=== PATIENT | male | born 1935 | race Caucasian/White ===

== ENCOUNTER → 2020-01-17 15:24 | Outpatient (BNVA) | payer OTHER, SELFPAY | PROVIDERS: Family Provider Nurse Practitioner Family; Referring Provider Dermatology; Visit Provider Dermatology | DX: Z85.828 Personal history of other malignant neoplasm of skin (principal); D48.5 Neoplasm of uncertain behavior of skin; L57.0 Actinic keratosis; L81.7 Pigmented purpuric dermatosis | CPT/HCPCS: 11102; 11103; 17000; 17003; 88304; 99203; 99204 ==

== ENCOUNTER → 2020-02-19 12:16 | Outpatient (BNVA) | payer OTHER, SELFPAY | PROVIDERS: Family Provider Nurse Practitioner Family; Visit Provider Dermatology | DX: D48.9 Neoplasm of uncertain behavior, unspecified (principal) | CPT/HCPCS: 88304 ==

== ENCOUNTER → 2020-02-26 12:44 | Outpatient (BNVA) | payer OTHER, SELFPAY | PROVIDERS: Family Provider Nurse Practitioner Family; Visit Provider Dermatology | DX: D48.9 Neoplasm of uncertain behavior, unspecified (principal) | CPT/HCPCS: 88304 ==

== ENCOUNTER → 2021-07-18 11:26 | Outpatient (BNVA) | payer OTHER, SELFPAY | PROVIDERS: Family Provider Nurse Practitioner Family; PCP Nurse Practitioner Family; Visit Provider Internal Medicine | DX: I25.10 Atherosclerotic heart disease of native coronary artery without angina pectoris (principal); I10 Essential (primary) hypertension; Z95.1 Presence of aortocoronary bypass graft; E78.5 Hyperlipidemia, unspecified; Z87.891 Personal history of nicotine dependence | CPT/HCPCS: 99213 ==

== ENCOUNTER → 2021-11-25 10:00 | Outpatient (BNVA) | payer OTHER, SELFPAY | PROVIDERS: Family Provider Nurse Practitioner Family; PCP Nurse Practitioner Family; Visit Provider Podiatrist Foot & Ankle Surgery | DX: E11.42 Type 2 diabetes mellitus with diabetic polyneuropathy (principal); I73.9 Peripheral vascular disease, unspecified; L60.3 Nail dystrophy; M20.41 Other hammer toe(s) (acquired), right foot; M20.42 Other hammer toe(s) (acquired), left foot | CPT/HCPCS: 99214 ==

== ENCOUNTER → 2022-01-30 10:57 | Outpatient (BNVA) | payer OTHER, SELFPAY | PROVIDERS: Family Provider Nurse Practitioner Family; PCP Nurse Practitioner Family; Visit Provider Internal Medicine | DX: I25.10 Atherosclerotic heart disease of native coronary artery without angina pectoris (principal); I10 Essential (primary) hypertension; Z95.1 Presence of aortocoronary bypass graft; E78.5 Hyperlipidemia, unspecified; Z98.61 Coronary angioplasty status; Z87.891 Personal history of nicotine dependence | CPT/HCPCS: 99213 ==

== ENCOUNTER → 2022-07-29 12:39 | Outpatient (BNVA) | payer OTHER, SELFPAY | PROVIDERS: Family Provider Nurse Practitioner Family; Visit Provider Internal Medicine | DX: I25.10 Atherosclerotic heart disease of native coronary artery without angina pectoris (principal); I10 Essential (primary) hypertension; E78.5 Hyperlipidemia, unspecified; Z95.1 Presence of aortocoronary bypass graft; Z87.891 Personal history of nicotine dependence | CPT/HCPCS: 99214 ==

== ENCOUNTER → 2022-11-10 11:02 | Outpatient (BNVA) | payer OTHER, SELFPAY | PROVIDERS: Family Provider Nurse Practitioner Family; Visit Provider Podiatrist Foot & Ankle Surgery | DX: E11.42 Type 2 diabetes mellitus with diabetic polyneuropathy (principal); I73.9 Peripheral vascular disease, unspecified; L60.3 Nail dystrophy; M20.42 Other hammer toe(s) (acquired), left foot; M20.41 Other hammer toe(s) (acquired), right foot; Z79.84 Long term (current) use of oral hypoglycemic drugs | CPT/HCPCS: 11721 ==

== ENCOUNTER → 2023-02-08 12:21 | Outpatient (BNVA) | payer OTHER, SELFPAY | PROVIDERS: Family Provider Nurse Practitioner Family; Visit Provider Internal Medicine | DX: I25.10 Atherosclerotic heart disease of native coronary artery without angina pectoris (principal); I10 Essential (primary) hypertension; Z95.1 Presence of aortocoronary bypass graft; E78.5 Hyperlipidemia, unspecified; Z87.891 Personal history of nicotine dependence | CPT/HCPCS: 99214 ==

== ENCOUNTER → 2023-02-10 14:00 | Outpatient (BNVA) | payer OTHER, SELFPAY | PROVIDERS: Family Provider Nurse Practitioner Family; Visit Provider Podiatrist Foot & Ankle Surgery | DX: E11.42 Type 2 diabetes mellitus with diabetic polyneuropathy (principal); I73.9 Peripheral vascular disease, unspecified; L60.3 Nail dystrophy; M20.42 Other hammer toe(s) (acquired), left foot; M20.41 Other hammer toe(s) (acquired), right foot; Z79.84 Long term (current) use of oral hypoglycemic drugs | CPT/HCPCS: 11721 ==

== ENCOUNTER → 2023-06-02 10:59 | Outpatient (BNVA) | payer OTHER, SELFPAY | PROVIDERS: Family Provider Nurse Practitioner Family; Visit Provider Podiatrist Foot & Ankle Surgery | DX: E11.42 Type 2 diabetes mellitus with diabetic polyneuropathy (principal); I73.9 Peripheral vascular disease, unspecified; L60.3 Nail dystrophy; M20.42 Other hammer toe(s) (acquired), left foot; M20.41 Other hammer toe(s) (acquired), right foot; Z79.84 Long term (current) use of oral hypoglycemic drugs | CPT/HCPCS: 11721 ==

== ENCOUNTER → 2023-06-09 12:53 | Outpatient (BNVA) | payer OTHER, SELFPAY | PROVIDERS: Family Provider Nurse Practitioner Family; Visit Provider Nurse Practitioner Family | DX: L23.9 Allergic contact dermatitis, unspecified cause (principal); L30.0 Nummular dermatitis; L57.0 Actinic keratosis; D69.2 Other nonthrombocytopenic purpura; L57.8 Other skin changes due to chronic exposure to nonionizing radiation; L81.4 Other melanin hyperpigmentation; L85.3 Xerosis cutis; Z85.828 Personal history of other malignant neoplasm of skin | CPT/HCPCS: 17000; 99214 ==

== ENCOUNTER 2023-06-24 10:28 | Emergency (ER) | payer OTHER, SELFPAY ==
[2023-06-24 10:32] VITALS: BMI 28.6
[2023-06-24 10:35] VITALS: BP 136/72; PULSE 82; RESP 17; TEMP 37.1; O2SAT 97
--- NOTE | 2023-06-24 10:36 | ECG_ITS ---
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 Measurements Intervals [place] Rate: 80 P: 102 WV: 159 QRS: 2 QRSD: 93 T: 78 QT: 356 QTc: 413 Interpretive Statements SINUS RHYTHM Compared to ECG 12/04/2018 18:42:24 Sinus tachycardia no longer present T-wave abnormality no longer present Electronically Signed On 06-24-2023 14:42:27 TRANSPORTATION CLERK by Frankie Johnson M.D. [email or web address] Lifewilson street [email or web address] the World/store/NU/[id number] f
--- NOTE | 2023-06-24 10:36 | ECG_ITS ---
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 Measurements Intervals [place] Rate: 80 P: 102 ND: 159 QRS: 2 QRSD: 93 T: 78 QT: 356 QTc: 413 Interpretive Statements SINUS RHYTHM Compared to ECG 12/04/2018 18:42:24 Sinus tachycardia no longer present T-wave abnormality no longer present Electronically Signed On 06-24-2023 14:42:30 WEBSPHERE COMMERCE CONSULTANT by Frankie Johnson M.D. [email or web address] Benefitscleveland clinic marymount hospitalJoroto/store/NU/[id number]/ecg/[id number] f
--- NOTE | 2023-06-24 10:38 | XR_ITS ---
WS: [id number] Portable AP upright chest, 06/24/2023 Clinical Data: dyspnea/cough Comparison: Portable chest, 12/04/2018 Findings: The heart is slightly enlarged. There are bilateral basilar opacities which have the appear ance of atelectasis. The diaphragms are flattened. No pneumothorax is seen. The pulmonary vascularity is not increased. There are midline sternotomy sutures. The aortic arch and descending thoracic aort a show calcifications and tortuosity is. Impression: 1. Bibasilar opacities which could represent minimal pneumonia and/or atelectasis. 2. Cardiomegaly, atherosclerosis and hyperinflation.
[2023-06-24 11:07] LABS: Basophils % 0.4 %; Eosinophils # 0.3 10^3/uL (0.0-0.8); Eosinophils % 5.7 %; Hematocrit 32.9 % (37-53); Lymphocytes # 1.5 10^3/uL (0.8-4.8); Lymphocytes % 26.2 %; Mean Corpuscular HGB Conc 30.4 g/dL (30-55); Mean Corpuscular Hemoglobin 22.7 pg (27-33); Mean Corpuscular Volume 74.6 fl (82-101); Mean Platelet Volume 8.6 fL (7.4-10.4); Monocytes # 0.7 10^3/uL (0.2-0.9); Monocytes % 11.7 %; Neutrophils % 55.6 %; Nucleated Red Blood Cells % 0 %; Platelet Count 197 10^3/cmm (157-399); Red Blood Count 4.41 10^6/uL (3.85-5.65); Red Cell Distribution Width 16.1 % (12.1-15.1); White Blood Count 5.57 10^3/uL (3.29-11.43)
[2023-06-24 11:11] VITALS: BP 124/63; PULSE 79; O2SAT 96
--- NOTE | 2023-06-24 11:15 | ED_ITS ---
HPI - SOB/Dyspnea 2 General: Chief Complaint: Shortness of Breath/Dyspnea Stated Complaint: Sob, irregular bp sent from [place] Time Seen by Provider: 06/24/23 10:38 Source: patient Mode of arrival: ambulatory History of Present Illness: HPI Narrative: 87-year-old male presents emergency room complaining of intermittent shortness of breath with activity. He does not normally use oxygen at home. He has intermittent episodes of lightheadedness dizziness when he first stands. He has a baseline productive cough that is unchanged. No fever sweats or chills no chest pain at this time MD elicited complaint: shortness of breath Onset (ago): day(s) Timing: intermittent Severity: mild Exacerbating factors: exertion Relieving factors: rest Associated symptoms: Deny abdominal pain, chest congestion, chest pain, cough, diaphoresis, dizziness, extremity pain, fever(s), hemoptysis, lightheadedness, myalgias, nausea, orthopnea, palpitations, paresthesias, polydipsia, polyuria, rash, sense of impending doom, syncope or vomiting Treatment prior to arrival: none Review of Systems 2 Const: Denies: fever(s), chills or diaphoresis Card: Denies: chest pain, palpitations, lightheadedness, syncope or orthopnea Resp: Reports: dyspnea and productive cough (Unchanged baseline); Denies: hemoptysis or chest congestion GI: Denies: abdominal pain, nausea or vomiting : Denies: dysuria, urinary frequency or urinary urgency Musc: Denies: neck pain, back pain or extremity pain Skin/Breast: Denies: rash Neuro: Denies: dizziness Endo: Denies: polyuria or polydipsia PFSH ED 2 PFSH: Medical History History of nonmelanoma skin cancer BPH (benign prostatic hyperplasia) Nocturia Surgical History S/P angioplasty S/P cholecystectomy S/P skin cancer resection Hx of CABG Family History Mother , 70 No problems noted. Father , 90 No problems noted. Social History Smoking and tobacco/nicotine status: former use of tobacco/nicotine Alcohol intake: never Substance/Drug Use: never Marital status: Current occupational status: retired Physical Exam 2 Const: COMMON NORMALS: no acute distress GENERAL APPEARANCE: cooperative and comfortable ORIENTATION/CONSCIOUSNESS: Yes awake, Yes oriented to person, Yes oriented to place and Yes oriented to time HENMT: COMMON NORMALS: normocephalic, atraumatic and hearing grossly normal bilaterally HEAD & SCALP: normocephalic and atraumatic Resp: COMMON NORMALS: normal respiratory effort, No retractions, No use of accessory muscles and clear to auscultation bilaterally AUSCULTATION: clear to auscultation bilaterally Cardio: COMMON NORMALS: regular rate, regular rhythm and No murmurs present (Cardio) RATE: regular rate RHYTHM: regular rhythm GI: COMMON NORMALS: Soft to palpation and No hepatosplenomegaly present A USCULTATION: Yes normoactive bowel sounds PALPATION: Yes Soft to palpation, No Tenderness to palpation present (GI), No Guarding due to palpation present (GI) and Yes No hepatosplenomegaly present Extremity: COMMON NORMALS: normal to inspection, capillary refill normal, no clubbing, cyanosis or edema, no calf tenderness and no pedal edema Neuro: SENSORIUM/ORIENTATION: Yes oriented to person, Yes oriented to place and Yes oriented to time Skin: COMMON NORMALS: no rashes or lesions noted GENERAL SKIN EXAM: no rashes or lesions noted Course 2 Vital Signs: Vital signs: Vital Signs Temperature 98.8 F 06/24/23 10:35 Pulse Rate 75 06/24/23 15:04 Respiratory Rate 22 H 06/24/23 12:17 Blood Pressure 127/69 06/24/23 15:04 Pulse Oximetry 93 06/24/23 12:17 Oxygen Delivery Me thod Room Air 06/24/23 10:35 MDM - SOB/Dyspnea Medical Decision Making Labs and imaging reviewed. Chest x-ray appears to have more atelectasis. Patient states He has a little bit of productive cough but its baseline clear sputum that he has frequently and its unchanged from what he intermittently has it has not increased or changed in character or color or volume. Will have him hold his amlodipine and set him up for an outpatient Lexiscan sestamibi stress test and a 48-hour Holter monitor follow-up with his doctor within 1 week for any worsening or changes symptoms recheck. He does have some mild hyponatremia however appears to be his baseline in comparison to old labs. Additionally he is mildly anemic his only other hemoglobin to compare to is over 5 years old this should be followed up with his primary care doctor as well. Lab Data 06/24/23 11:00 06/24/23 11:00 Labs/Radiology: Laboratory Results WBC 5.57 10^3/uL (3.29-11.43) 06/24/23 11:00 RBC 4.41 10^6/uL (3.85-5.65) 06/24/23 11:00 Hgb 10.00 g/dL (11.27-16.99) L 06/24/23 11:00 Hct 32.9 % (37-53) L 06/24/23 11:00 MCV 74.6 fl (82-101) L 06/24/23 11:00 MCH 22.7 pg (27-33) L 06/24/23 11:00 MCHC 30.4 g/dL (30-55) 06/24/23 11:00 RDW 16.1 % (12.1-15.1) H 06/24/23 11:00 Plt Count 197 10^3/cmm (157-399) 06/24/23 11:00 MPV 8.6 fL (7.4-10.4) 06/24/23 11:00 Neut % (Auto) 55.6 % 06/24/23 11:00 Lymph % (Auto) 26.2 % 06/24/23 11:00 Gordon % (Auto) 11.7 % 06/24/23 11:00 Eos % (Auto) 5.7 % 06/24/23 11:00 Baso % (Auto) 0.4 % 06/24/23 11:00 Neut # (Auto) 3.10 10^3/uL (1.8-7.7) 06/24/23 11:00 Lymph # (Auto) 1.5 10^3/uL (0.8-4.8) 06/24/23 11:00 Gordon # (Auto) 0.7 10^3/uL (0.2-0.9) 06/24/23 11:00 Eos # (Auto) 0.3 10^3/uL (0.0-0.8) 06/24/23 11:00 Baso # (Auto) 0.0 10^3/uL (0.0-0.1) 06/24/23 11:00 Nucleated RBC % (auto) 0 % 06/24/23 11:00 Nucleated RBCs # 0.0 /100WBC 06/24/23 11:00 Sodium 129 mmol/L (136-145) L 06/24/23 11:00 Potassium 4.5 mmol/L (3.5-5.1) 06/24/23 11:00 Chloride 95 mmol/L (98-107) L 06/24/23 11:00 Carbon Dioxide 22 mmol/L (22-29) 06/24/23 11:00 Anion Gap 16.5 (5-19) 06/24/23 11:00 BUN 16 mg/dL (8-23) 06/24/23 11:00 Creatinine 1.2 mg/dL (0.7-1.2) 06/24/23 11:00 GFR Calculation Not Reportable 06/24/23 11:00 Glucose 197 mg/dL (65-115) H 06/24/23 11:00 Calculated Osmolality 275 mOsm/kg (285-295) L 06/24/23 11:00 Calcium 8.5 mg/dL (8.5-10.5) 06/24/23 11:00 Magnesium 1.7 mg/dL (1.7-2.3) 06/24/23 11:00 Total Bilirubin 0.5 mg/dL (0.15-1.2) 06/24/23 11:00 AST 13 U/L (0-40) 06/24/23 11:00 ALT 9 U/L (0-41) 06/24/23 11:00 Alkaline Phosphatase 72 U/L (40-130) 06/24/23 11:00 Troponin T Baseline 13 ng/L (0-15) 06/24/23 11:00 Troponin T 120 Minute 11.91 ng/L (0-15) 06/24/23 13:18 Delta Troponin T -1.09 ABS# (0-10) L 06/24/23 13:18 Total Protein 5.8 g/dL (6.6-8.7) L 06/24/23 11:00 Albumin 3.5 g/dL (3.5-5.2) 06/24/23 11:00 Globulin 2.3 g/dL (1.3-4.6) 06/24/23 11:00 Urine Color Yellow (Yellow) 06/24/23 11:35 Urine Appearance Clear (CLEAR) 06/24/23 11:35 Urine pH 6.5 (5-7) 06/24/23 11:35 Ur Specific [place] 1.005 (1.005-1.030) 06/24/23 11:35 Urine Protein Neg (Negative) 06/24/23 11:35 Urine Glucose (UA) Norm (Normal) 06/24/23 11:35 Urine Ketones Negative (Negative) 06/24/23 11:35 Urine Blood Neg (Negative) 06/24/23 11:35 Urine Nitrate Negative (Negative) 06/24/23 11:35 Urine Bilirubin Neg (Negative) 06/24/23 11:35 Urine Urobilinogen Neg mg/dL (Negative) 06/24/23 11:35 Ur Leukocyte Esterase Negative (Negative) 06/24/23 11:35 All radiology interpretation(s) finalized by discharge Discharge Plan Discharge Patient Disposition: Home Clinical Impression: Palpitations, Dyspnea Condition: Stable Prescriptions: Discontinued amlodipine 2.5 mg Tablet 2.5 mg PO DAILY No Action Antacid Calcium 215 mg calcium (500 mg) tablet,chewable 430 mg PO BEDTIME PRN (Reason: ANTACID) hydrophilic Ointment 1 applic topical BID PRN (Reason: Dry Skin) melatonin 3 mg capsule 6 mg PO BEDTIME lisinopril 40 mg tablet 20 mg PO BID dicyclomine 10 mg capsule 10 mg PO TID PRN (Reason: IBS) acetaminophen 325 mg tablet 650 mg PO QID PRN (Reason: Pain) atorvastatin 40 mg tablet 20 mg PO QPM cholecalciferol (vitamin D3) 2,000 unit tablet 4,000 unit PO DAILY clopidogrel 75 mg tablet 75 mg PO DAILY finasteride 5 mg tablet 5 mg PO DAILY fluticasone propionate [Allergy Relief (fluticasone)] 50 mcg/actuation spray,suspension 1 spray INTRANASAL DAILY glipizide 5 mg tablet 5 mg PO BID metformin 1,000 mg tablet extended release 24hr 1,000 mg PO QAM metoprolol succinate 100 mg capsule,sprinkle,ER 24hr 100 mg PO DAILY pantoprazole [address] for susp in packet 40 mg PO Q12H simethicone [Gas Relief (simethicone)] 80 mg tablet,chewable 160 mg PO QID PRN (Reason: INDIGESTON) terazosin 10 mg capsule 10 mg PO BEDTIME triamcinolone acetonide 0.1 % ointment 1 applic topical BID Qty: 454 0RF mupirocin 2 % ointment 1 applic topical BID Qty: 22 1RF Rx Instructions: Apply to affected areas on legs until healed Senokot 8.6 mg Tablet 8.6 mg PO DAILY cetirizine 10 mg Tablet 10 mg PO DAILY tolterodine 2 mg Tablet 2 mg PO DAILY carboxymethylcellulose sodium 0.5 % Drops 2 drp ophthalmic (eye) QID benzonatate 100 mg Capsule 100 mg PO TID PRN (Reason: Cough) buspirone 10 mg Tablet 10 mg PO BID olopatadine 0.1 % Drops 1 drp OPHTHALMIC (EYE) BID Rx Instructions: separate doses by at least 6-8 hours ketoconazole 1 % Shampoo 1 applic TOPICAL DAILY Fish Oil 1,000 mg (120 mg-180 mg) Capsule 1 cap PO DAILY Discharge Orders: Discharge ED (Routine); Ordered 06/24/23 Ordered By: Jeff Wright Referrals: Marivel Velazquez MD [Primary Care Provider] - Discharge Diet: Usual diet Discharge Activity: Increase activity as tolerated Patient Instructions: Opioid Safety, Pain Management Activity Restrictions/Additional Instructions: Thank you for choosing [facility] for your healthcare needs today. Please realize this is an emergency room and that we are providing you with a medical screening exam and this may not be complete and all inclusive of all the testing and or work up that you may need to determine your ailment or severity of your illness. It is very important that you follow up as instructed or that you return to the Emergency Department should you have concerns or if your condition changes or worsens in any way. Case management make arrangements for you to have an outpatient stress test and a 48-hour Holter monitor. Recommend that you stop taking the amlodipine for now and follow-up with your primary care doctor Coding Level of Care Code ED Claims Administrator for Jordan Aranda
[2023-06-24 11:31] LABS: Alanine Aminotransferase 9 U/L (0-41); Albumin Level 3.5 g/dL (3.5-5.2); Alkaline Phosphatase 72 U/L (40-130); Anion Gap 16.5 (5-19); Aspartate Amino Transferase 13 U/L (0-40); Blood Urea Nitrogen 16 mg/dL (8-23); Calcium 8.5 mg/dL (8.5-10.5); Carbon Dioxide 22 mmol/L (22-29); Chloride 95 mmol/L (98-107); Creatinine Clr Calc Pharmacy 53.5594; Globulin 2.3 g/dL (1.3-4.6); Glucose 197 mg/dL (65-115); Magnesium 1.7 mg/dL (1.7-2.3); Osmolality Calculated 275 mOsm/kg (285-295); Potassium 4.5 mmol/L (3.5-5.1); Sodium 129 mmol/L (136-145); Total Bilirubin 0.5 mg/dL (0.15-1.2); Total Protein 5.8 g/dL (6.6-8.7)
[2023-06-24 11:32] LABS: Troponin(5th) Baseline 13 ng/L (0-15)
[2023-06-24 11:44] LABS: Add Urine Microscopic? NO; Charge for UA Resulting for Rev
[2023-06-24 11:48] LABS: Bilirubin Urine Neg (Negative); Blood Urine Neg (Negative); Glucose Urine UA Norm (Normal); Ketones Urine Negative (Negative); Leukocyte Esterase Urine Negative (Negative); Nitrate Urine Negative (Negative); Protein Urine Neg (Negative); Specific Gravity, Urine 1.005 (1.005-1.030); Urine Appearance Clear (CLEAR); Urine Color Yellow (Yellow); Urobilinogen Urine Neg (Negative); pH Urine 6.5 (5-7)
[2023-06-24 12:17] VITALS: BP 107/63; PULSE 75; RESP 22; O2SAT 93
--- NOTE | 2023-06-24 12:40 | ECG_ITS ---
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 Measurements Intervals [place] Rate: 73 P: 85 SC: 211 QRS: -4 QRSD: 87 T: 71 QT: 374 QTc: 414 Interpretive Statements SINUS RHYTHM WITH FIRST DEGREE AV BLOCK Compared to ECG 06/24/2023 10:36:33 First degree AV block now present Electronically Signed On 06-24-2023 14:47:49 CHUTE BOSS by Frankie Johnson M.D. [email or web address] promise of [email or web address] Sciencecleveland clinic [facility].[employer]/store/OM/[id number]
[2023-06-24 13:55] LABS: Troponin 5 2HR 11.91 ng/L (0-15)
[2023-06-24 13:57] LABS: Troponin 5 2HR Delta -1.09 ABS# (0-10)
[2023-06-24 15:04] VITALS: BP 123/64; BP 127/69; PULSE 75; PULSE 76; PULSE 79
--- NOTE | 2023-06-24 18:05 | DCPLANNER ---
A message was sent to heart care on 06/24/23 at 3254. [facility] to contact patient
== END 2023-06-24 15:21 | disposition home or self-care (01) ==
PROVIDERS: Emergency Provider Family Medicine; PCP Family Medicine
DX: R06.00 Dyspnea, unspecified (principal); R00.2 Palpitations; Z79.02 Long term (current) use of antithrombotics/antiplatelets; Z79.84 Long term (current) use of oral hypoglycemic drugs; Z95.1 Presence of aortocoronary bypass graft; Z87.891 Personal history of nicotine dependence
CPT/HCPCS: 36415; 71045; 80053; 81003; 83735; 84484; 85025; 93005; 99285

== ENCOUNTER 2023-07-07 15:13 | Emergency (ER) | payer OTHER, SELFPAY ==
[2023-07-07] VITALS (7 sets, daily range): BP systolic 173–186; BP diastolic 85–86; PULSE 68–74; RESP 16–25; TEMP 36.4; O2SAT 94–99
--- NOTE | 2023-07-07 15:17 | ECG_ITS ---
[facility] Test Date: 2023-07-07 Pat Name: Charbel Azar Department: Room: Gender: Male Room Designer: : 1935 Requested By: Jeff Sheth Order Number: [id number] Harmony MD: Frankie Johnson M.D. Measurements Intervals [place] Rate: 74 P: -83 PA: 137 QRS: -3 QRSD: 91 T: 45 QT: 371 QTc: 412 Interpretive Statements SINUS RHYTHM Compared to ECG 06/24/2023 12:40:40 First degree AV block no longer present Electronically Signed On 07-07-2023 16:48:35 CDT by Frankie Johnson M.D. [email or web address].[employer]/store/NU/[id number] f
--- NOTE | 2023-07-07 15:44 | XR_ITS ---
WS: [id number] Portable AP upright chest, 07/07/2023 Clinical Data: dyspnea/cough Comparison: Portable chest, 06/24/2023 Findings: The bibasilar opacities remain the same. Heart is slightly enlarged. The aortic arch shows calcification and tortuosity. Midline sternotomy sutures are present. The diaphragms are flattened. N o pneumothorax is seen and the pulmonary vascularity is not remarkable. Monitor leads are on the ches t wall. There are probable synovial calcifications adjacent to the left coracoid process Impression: 1. No change in bibasilar opacities. 2. Atherosclerosis and cardiomegaly.
--- NOTE | 2023-07-07 15:45 | PC.NURSE ---
pt walks from triage to rm 15, hooked up to monitor and pt o2 on RA was 85%. placed on 2Lnc and notified larry
--- NOTE | 2023-07-07 15:53 | ED_ITS ---
HPI - SOB/Dyspnea 2 General: Chief Complaint: Shortness of Breath/Dyspnea Stated Complaint: sob Time Seen by Provider: 07/07/23 15:44 Source: patient Mode of arrival: ambulatory History of Present Illness: HPI Narrative: 87-year-old male presents emergency room complaining of shortness of breath progressively worsening over the last few months gotten the point that he cannot walk across his room without getting severely short of breath nearly stopped. Home health nurse came out today and he desatted to the low a mid to low 80s while they were checking. He had similar oxygen desaturations after arriving here. On 2 L he sats 100%. He has a history of COPD is a former smoker also has a history of coronary artery disease he quit smoking after his bypass over 10 years ago. MD elicited complaint: shortness of breath Pertinent past history: COPD Onset (ago): month(s) (2) Timing: intermittent Severity: moderate Exacerbating factors: exertion Relieving factors: oxygen Known history of: COPD Associated symptoms: Deny abdominal pain, chest congestion, chest pain, cough, diaphoresis, dizziness, extremity pain, fever(s), hemoptysis, lightheadedness, myalgias, nausea, orthopnea, palpitations, paresthesias, polydipsia, polyuria, rash, sense of impending doom, syncope or vomiting Treatment prior to arrival: none Review of Systems 2 Const: Denies: fever(s), chills or diaphoresis Card: Denies: chest pain, palpitations, lightheadedness, syncope or orthopnea Resp: Denies: dyspnea, hemoptysis or chest congestion GI: Denies: abdominal pain, nausea or vomiting : Denies: dysuria, urinary frequency or urinary urgency Musc: Denies: neck pain, back pain or extremity pain Skin/Breast: Denies: rash Neuro: Denies: dizziness Endo: Denies: polyuria or polydipsia PFSH ED 2 PFSH: Medical History (Updated 07/07/23 @ 18:15 by Jeff Wright DO) History of nonmelanoma skin cancer BPH (benign prostatic hyperplasia) Nocturia Surgical History S/P angioplasty S/P cholecystectomy S/P skin cancer resection Hx of CABG Family History Mother , 70 No problems noted. Father , 90 No problems noted. Social History Smoking and tobacco/nicotine status: former use of tobacco/nicotine Alcohol intake: never Substance/Drug Use: never Marital status: Current occupational status: retired Physical Exam 2 Const: GENERAL APPEARANCE: cooperative and comfortable O RIENTATION/CONSCIOUSNESS: Yes awake, Yes oriented to person, Yes oriented to place and Yes oriented to time HENMT: COMMON NORMALS: normocephalic, atraumatic and hearing grossly normal bilaterally HEAD & SCALP: normocephalic and atraumatic Resp: COMMON NORMALS: normal respiratory effort, No retractions and No use of accessory muscles AUSCULTATION: crackles and rhonchi Cardio: COMMON NORMALS: regular rate, regular rhythm and No murmurs present (Cardio) RATE: regular rate RHYTHM: regular rhythm GI: COMMON NORMALS: Soft to palpation and No hepatosplenomegaly present A USCULTATION: Yes normoactive bowel sounds PALPATION: Yes Soft to palpation, No Tenderness to palpation present (GI), No Guarding due to palpation present (GI) and Yes No hepatosplenomegaly present Extremity: COMMON NORMALS: normal to inspection, capillary refill normal, no clubbing, cyanosis or edema, no calf tenderness and no pedal edema Neuro: SENSORIUM/ORIENTATION: Yes oriented to person, Yes oriented to place and Yes oriented to time Skin: COMMON NORMALS: no rashes or lesions noted GENERAL SKIN EXAM: no rashes or lesions noted Course 2 Vital Signs: Vital signs: Vital Signs Temperature 97.5 F L 07/07/23 15:22 Pulse Rate 70 07/07/23 18:29 Respiratory Rate 24 H 07/07/23 18:29 Blood Pressure 173/85 07/07/23 17:02 Pulse Oximetry 94 07/07/23 18:29 Oxygen Delivery Me thod Nasal Cannula 07/07/23 17:00 Oxygen Flow Rate 2 07/07/23 17:00 MDM - SOB/Dyspnea Medical Decision Making CTA of the chest is negative for acute PE. [facility] when he has it at home. He is not very interested in using it however because he anticipates it will be cumbersome and difficult for him to do the things he usually wants to do. We had seen him previously for exacerbation COPD his primary care nurse provider reported he had a positive D- dimer added to the clinic. We did not repeat his D-dimer here we did do the CTA which does not show any acute PE does show severe COPD. Reviewed with the patient. Recommend continued use of oxygen as prescribed. Patient wants to pursue other options so he does not have to be on the oxygen recommend he start on Symbicort 2 puffs twice daily use albuterol as needed and encouraged him to follow-up with the [facility] for possible pulmonology consult. Patient denies any chest pain now or recently at this visit. If he has any change or worsening symptoms can return. Differential Diagnosis Likely acute exacerbation of chronic obstructive airways disease, congestive heart failure, community acquired pneumonia and pulmonary embolism Medical Records I reviewed the patient's medical records. Lab Data I reviewed the patient's lab results. 07/07/23 15:53 07/07/23 15:53 Labs/Radiology: Radiology Impressions Chest CTA 07/07/23 16:24 IMPRESSION: 1. No acute findings 2. Cardiomegaly with severe emphysematous change involving both lungs Laboratory Results WBC 5.32 10^3/uL (3.29-11.43) 07/07/23 15:53 RBC 4.68 10^6/uL (3.85-5.65) 07/07/23 15:53 Hgb 10.80 g/dL (11.27-16.99) L 07/07/23 15:53 Hct 34.7 % (37-53) L 07/07/23 15:53 MCV 74.1 fl (82-101) L 07/07/23 15:53 MCH 23.1 pg (27-33) L 07/07/23 15:53 MCHC 31.1 g/dL (30-55) 07/07/23 15:53 RDW 16.3 % (12.1-15.1) H 07/07/23 15:53 Plt Count 229 10^3/cmm (157-399) 07/07/23 15:53 MPV 8.7 fL (7.4-10.4) 07/07/23 15:53 Neut % (Auto) 53.3 % 07/07/23 15:53 Lymph % (Auto) 26.5 % 07/07/23 15:53 [place] % (Auto) 13.0 % 07/07/23 15:53 Eos % (Auto) 5.6 % 07/07/23 15:53 Baso % (Auto) 0.8 % 07/07/23 15:53 Neut # (Auto) 2.84 10^3/uL (1.8-7.7) 07/07/23 15:53 Lymph # (Auto) 1.4 10^3/uL (0.8-4.8) 07/07/23 15:53 [place] # (Auto) 0.7 10^3/uL (0.2-0.9) 07/07/23 15:53 Eos # (Auto) 0.3 10^3/uL (0.0-0.8) 07/07/23 15:53 Baso # (Auto) 0.0 10^3/uL (0.0-0.1) 07/07/23 15:53 Nucleated RBC % (auto) 0 % 07/07/23 15:53 Nucleated RBCs # 0.0 /100WBC 07/07/23 15:53 Specimen Type Arterial 07/07/23 15:49 Sample Site Radial, left 07/07/23 15:49 ABG pH 7.45 (7.35-7.45) 07/07/23 15:49 ABG pCO2 33.9 mmHg (35-45) L 07/07/23 15:49 ABG pO2 110.0 mmHg (80.0-100.0) H 07/07/23 15:49 ABG PO2/FiO2 Ratio 0 07/07/23 15:49 ABG HCO3 23.3 mmol/L (22-26) 07/07/23 15:49 ABG O2 Saturation 97.4 07/07/23 15:49 ABG Base Excess -0.4 mmol/L (-2.0-2.0) 07/07/23 15:49 Johnson Test Pos 07/07/23 15:49 A-a O2 Gradient 5.9 mmHg (5-10) 07/07/23 15:49 Hematocrit 32.0 % (42-52) L 07/07/23 15:49 Hgb O2 Saturation 96.0 % (95-100) 07/07/23 15:49 Carboxyhemoglobin 0.5 %THgb (0.4-20.1) 07/07/23 15:49 Methemoglobin 0.9 % (0.4-1.5) 07/07/23 15:49 Total Hemoglobin 10.4 g/dL (14-18) L 07/07/23 15:49 Sodium 128.0 mmol/L (131-143) L 07/07/23 15:49 Potassium 4.1 mmol/L (3.5-5.0) 07/07/23 15:49 Glucose 162.0 mg/dL (70-115) H 07/07/23 15:49 Ionized Calcium 1.2 mmol/L (1.1-1.4) 07/07/23 15:49 O2 Delivery Device Nc 07/07/23 15:49 O2 Liters/Min 2.0 % 07/07/23 15:49 FiO2 28.0 % 07/07/23 15:49 Wastewater Operator ID Cak 07/07/23 15:49 Sodium 131 mmol/L (136-145) L 07/07/23 15:53 Potassium 4.5 mmol/L (3.5-5.1) 07/07/23 15:53 Chloride 96 mmol/L (98-107) L 07/07/23 15:53 Carbon Dioxide 25 mmol/L (22-29) 07/07/23 15:53 Anion Gap 14.5 (5-19) 07/07/23 15:53 BUN 14 mg/dL (8-23) 07/07/23 15:53 Creatinine 1.0 mg/dL (0.7-1.2) 07/07/23 15:53 GFR Calculation Not Reportable 07/07/23 15:53 Glucose 156 mg/dL (65-115) H 07/07/23 15:53 Calculated Osmolality 276 mOsm/kg (285-295) L 07/07/23 15:53 Calcium 8.9 mg/dL (8.5-10.5) 07/07/23 15:53 Total Bilirubin 0.5 mg/dL (0.15-1.2) 07/07/23 15:53 AST 16 U/L (0-40) 07/07/23 15:53 ALT 10 U/L (0-41) 07/07/23 15:53 Alkaline Phosphatase 84 U/L (40-130) 07/07/23 15:53 Troponin T Baseline 10 ng/L (0-15) 07/07/23 15:53 Troponin T 120 Minute 10.81 ng/L (0-15) 07/07/23 17:43 Delta Troponin T 0.81 ABS# (0-10) 07/07/23 17:43 NT-Pro-B Natriuret Pep 458 pg/mL (0-450) H 07/07/23 15:53 Total Protein 6.1 g/dL (6.6-8.7) L 07/07/23 15:53 Albumin 3.8 g/dL (3.5-5.2) 07/07/23 15:53 Globulin 2.3 g/dL (1.3-4.6) 07/07/23 15:53 All radiology interpretation(s) finalized by discharge Discharge Plan Discharge Patient Disposition: Home Clinical Impression: COPD (chronic obstructive pulmonary disease) Condition: Stable Prescriptions: New Symbicort 80-4.5 mcg/actuation HFA aerosol inhaler 2 inh inhalation BID Qty: 10.2 0RF albuterol sulfate 90 mcg/actuation HFA aerosol inhaler 2 inh INHALATION Q4H PRN (Reason: shortness of breath or wheezing) Qty: 18 0RF No Action Antacid Calcium 215 mg calcium (500 mg) tablet,chewable 430 mg PO BEDTIME PRN (Reason: ANTACID) hydrophilic Ointment 1 applic topical BID PRN (Reason: Dry Skin) melatonin 3 mg capsule 6 mg PO BEDTIME lisinopril 40 mg tablet 20 mg PO BID dicyclomine 10 mg capsule 10 mg PO TID PRN (Reason: IBS) acetaminophen 325 mg tablet 650 mg PO QID PRN (Reason: Pain) atorvastatin 40 mg tablet 20 mg PO QPM cholecalciferol (vitamin D3) 2,000 unit tablet 4,000 unit PO DAILY clopidogrel 75 mg tablet 75 mg PO DAILY finasteride 5 mg tablet 5 mg PO DAILY fluticasone propionate [Allergy Relief (fluticasone)] 50 mcg/actuation spray,suspension 1 spray INTRANASAL DAILY glipizide 5 mg tablet 5 mg PO BID metformin 1,000 mg tablet extended release 24hr 1,000 mg PO QAM metoprolol succinate 100 mg capsule,sprinkle,ER 24hr 100 mg PO DAILY pantoprazole [address] for susp in packet 40 mg PO Q12H simethicone [Gas Relief (simethicone)] 80 mg tablet,chewable 160 mg PO QID PRN (Reason: INDIGESTON) terazosin 10 mg capsule 10 mg PO BEDTIME triamcinolone acetonide 0.1 % ointment 1 applic topical BID Qty: 454 0RF mupirocin 2 % ointment 1 applic topical BID Qty: 22 1RF Rx Instructions: Apply to affected areas on legs until healed Senokot 8.6 mg Tablet 8.6 mg PO DAILY cetirizine 10 mg Tablet 10 mg PO DAILY tolterodine 2 mg Tablet 2 mg PO DAILY carboxymethylcellulose sodium 0.5 % Drops 2 drp ophthalmic (eye) QID benzonatate 100 mg Capsule 100 mg PO TID PRN (Reason: Cough) buspirone 10 mg Tablet 10 mg PO BID olopatadine 0.1 % Drops 1 drp OPHTHALMIC (EYE) BID Rx Instructions: separate doses by at least 6-8 hours ketoconazole 1 % Shampoo 1 applic TOPICAL DAILY Fish Oil 1,000 mg (120 mg-180 mg) Capsule 1 cap PO DAILY Discharge Orders: Discharge ED (Routine); Ordered 07/07/23 Ordered By: Jeff Wright Referrals: Rsoalva Ba FNP [Primary Care Provider] - Discharge Diet: Usual diet Discharge Activity: Increase activity as tolerated Patient Instructions: COPD (Chronic Obstructive Pulmonary Disease) (ED), Opioid Safety, Pain Management Activity Restrictions/Additional Instructions: Thank you for choosing [facility] for your healthcare needs today. Please realize this is an emergency room and that we are providing you with a medical screening exam and this may not be complete and all inclusive of all the testing and or work up that you may need to determine your ailment or severity of your illness. It is very important that you follow up as instructed or that you return to the Emergency Department should you have concerns or if your condition changes or worsens in any way. Follwo up with your physician at the [facility] for further treatment options for your COPD. Use the oxygen continiously. Coding Level of Care Code ED Refrigeration Engine Operator for Jordan Aranda
[2023-07-07 16:00] LABS: ABG PCO2 33.9 mmHg (35-45); ABG PH Result 7.45 (7.35-7.45); Alveolar-Arterial Oxygen Gradi 5.9 mmHg (5-10); Base Excess ABG -0.4 mmol/L (-2.0-2.0); Blood Gas Allen Test Pos; Blood Gas Operator Identificat CAK; Blood Gas Sample Site Radial, left; Blood Gas Sample Type Arterial; Carboxyhemoglobin 0.5 %THgb (0.4-20.1); HCO3 ABG 23.3 mmol/L (22-26); Ionized Calcium Level - ABG 1.2 mmol/L (1.1-1.4); Methemoglobin 0.9 % (0.4-1.5); Oxygen Device NC; Oxygen Saturation ABG 97.4; PO2 FiO2 Ratio Arterial Blood 0; Potassium Level - ABG 4.1 mmol/L (3.5-5.0); Total Hemoglobin 10.4 g/dL (14-18)
[2023-07-07 16:03] LABS: Basophils % 0.8 %; Eosinophils # 0.3 10^3/uL (0.0-0.8); Eosinophils % 5.6 %; Hematocrit 34.7 % (37-53); Lymphocytes # 1.4 10^3/uL (0.8-4.8); Lymphocytes % 26.5 %; Mean Corpuscular HGB Conc 31.1 g/dL (30-55); Mean Corpuscular Hemoglobin 23.1 pg (27-33); Mean Corpuscular Volume 74.1 fl (82-101); Mean Platelet Volume 8.7 fL (7.4-10.4); Monocytes # 0.7 10^3/uL (0.2-0.9); Neutrophils # 2.84 10^3/uL (1.8-7.7); Neutrophils % 53.3 %; Nucleated Red Blood Cells % 0 %; Platelet Count 229 10^3/cmm (157-399); Red Blood Count 4.68 10^6/uL (3.85-5.65); Red Cell Distribution Width 16.3 % (12.1-15.1); White Blood Count 5.32 10^3/uL (3.29-11.43)
[2023-07-07] MEDS: dexamethasone 10 mg/mL INJ IM (16:19)
--- NOTE | 2023-07-07 16:24 | CTR_ITS ---
PROCEDURE INFORMATION: Exam: CTA Chest With Contrast Exam date and time: 07/07/2023 5:26 PM Age: 87 years old Clinical indication: Shortness of breath; Prior surgery; Surgery date: 6+ months; Surgery type: Cabg; Additional info: Dyspnea TECHNIQUE: Imaging protocol: Computed tomographic angiography of the chest with contrast. Exam focused on the arteries. 3D rendering (Not supervised by radiologist): MIP and/or 3D reconstructed images were created by the technologist. Radiation optimization: All CT scans at this facility use at least one of these dose optimization techniques: automated exposure control; mA and/or kV adjustment per patient size (includes targeted exams where dose is matched to clinical indication); or iterative reconstruction. Contrast material: OMNI 350; Contrast volume: 80 ml; Contrast route: INTRAVENOUS (IV); COMPARISON: CR XR chest 1V portable [id number] 07/07/2023 3:47 PM RADIATION DOSE METRICS: Total DLP (mGy-cm): 471.45 FINDINGS: Pulmonary arteries: Normal. No pulmonary emboli. Aorta: Unremarkable. No aortic aneurysm. No aortic dissection. Lungs: Both lungs demonstrate prominent diffuse centrilobular emphysema and there is chronic diffuse interstitial coarsening. I see no acute lung infiltrate or mass. Pleural spaces: Unremarkable. No pneumothorax. No pleural effusion. Heart: There is evidence of previous heart surgery with sternal sutures present. Moderate cardiomegaly is noted. Lymph nodes: Unremarkable. No enlarged lymph nodes. Bones/joints: See Heart finding. Soft tissues: Unremarkable. CT/CT angio chest PE protcl [id number] IMPRESSION: 1. No acute findings 2. Cardiomegaly with severe emphysematous change involving both lungs
[2023-07-07 16:26] LABS: Alanine Aminotransferase 10 U/L (0-41); Albumin Level 3.8 g/dL (3.5-5.2); Alkaline Phosphatase 84 U/L (40-130); Anion Gap 14.5 (5-19); Aspartate Amino Transferase 16 U/L (0-40); Blood Urea Nitrogen 14 mg/dL (8-23); Calcium 8.9 mg/dL (8.5-10.5); Carbon Dioxide 25 mmol/L (22-29); Chloride 96 mmol/L (98-107); Creatinine Clr Calc Pharmacy 63.6035; Globulin 2.3 g/dL (1.3-4.6); Glucose 156 mg/dL (65-115); Osmolality Calculated 276 mOsm/kg (285-295); Potassium 4.5 mmol/L (3.5-5.1); Sodium 131 mmol/L (136-145); Total Bilirubin 0.5 mg/dL (0.15-1.2); Total Protein 6.1 g/dL (6.6-8.7)
[2023-07-07 16:34] LABS: Troponin(5th) Baseline 10 ng/L (0-15)
[2023-07-07 16:48] LABS: NT Pro B Type Natriuretic Pept 458 pg/mL (0-450)
[2023-07-07] MEDS: ipratropium-albuterol 3 mL Neb INHALATION (17:05)
[2023-07-07] MEDS: iohexol 350 mg/mL 500 mL Btl (per mL) IV (17:31)
--- NOTE | 2023-07-07 17:44 | ECG_ITS ---
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 Measurements Intervals [place] Rate: 71 P: 0 HI: 0 QRS: -8 QRSD: 89 T: 38 QT: 374 QTc: 407 Interpretive Statements ATRIAL FIBRILLATION Compared to ECG 07/07/2023 15:17:34 Sinus rhythm no longer present Electronically Signed On 07-08-2023 7:48:45 CDT by Frankie Johnson M.D. [email or web address] [id number]
[2023-07-07 18:19] LABS: Troponin 5 2HR 10.81 ng/L (0-15); Troponin 5 2HR Delta 0.81 ABS# (0-10)
== END 2023-07-07 18:30 | disposition home or self-care (01) ==
PROVIDERS: Emergency Provider Family Medicine; PCP Nurse Practitioner Family
DX: J44.9 Chronic obstructive pulmonary disease, unspecified (principal); Z79.02 Long term (current) use of antithrombotics/antiplatelets; Z79.84 Long term (current) use of oral hypoglycemic drugs; Z95.1 Presence of aortocoronary bypass graft; Z87.891 Personal history of nicotine dependence
CPT/HCPCS: 36415; 36600; 71045; 71275; 80051; 80053; 82330; 82805; 83880; 84484; 85025; 93005; 94640; 96372; 99285; J1100; Q9967

== ENCOUNTER 2023-07-13 12:22 | Outpatient (CLI) | payer OTHER, SELFPAY ==
--- NOTE | 2023-07-13 12:27 | USCV_ITS ---
Charbel Azar Age: 87 Gender: M : 1935 Exam Date: 07/13/2023 12:46 Ordering Phys: Rosalva Ba DEPUTY SHERIFF CUSTODY DEPUTY SHERIFF CUSTODY Technologist: [place] [facility] [place]: sob BP: 150 / 80 HR: 59 Rhythm: Sinus Technical Quality: Adequate MEASUREMENTS (Male / Female) Normal Values 2D ECHO LV Diastolic Diameter PLAX 5.6 cm 4.2 - 5.9 / 3.9 - 5.3 cm IVS Diastolic Thickness 1.3 cm 0.6 - 1.0 / 0.6 - 0.9 cm IVS Systolic Thickness 1.5 cm LVPW Diastolic Thickness 1.1 cm 0.6 - 1.0 / 0.6 - 0.9 cm LVPW Systolic Thickness 1.5 cm LVOT Diameter 2.0 cm LV Ejection Fraction 2D Teich 62.2 % LV Ejection Fraction MOD 2C 66.6 % LV Ejection Fraction 2C AL 66.8 % LA Diameter 4.3 cm RA Systolic Volume 4C AL 74.4 ml RA Systolic Volume 4C MOD 69.0 ml Aorta at Sinotubular Diameter 2.5 cm IVC Diameter 1.6 cm M-MODE LA Ao Ratio MM 1.5 AV Cusp Separation MM 1.7 cm DOPPLER AV Peak Velocity 195.0 cm/s LVOT Peak Velocity 107.0 cm/s AV Area Cont Eq vti 2.1 cm squared AV Area Cont Eq pk 1.7 cm squared MV Peak Velocity 90.0 cm/s MV Area PHT 5.7 cm squared Mitral E to A Ratio 1.1 TR Peak Velocity 352.5 cm/s TR Peak Gradient 49.7 mmHg TR Mean Velocity 273.0 cm/s TR Mean Gradient 34.3 mmHg TR Velocity Time Integral 142.1 cm TV Peak E Velocity 116.0 cm/s Right Atrial Pressure 3.0 mmHg Pulmonary Artery Systolic Pressu 52.7 mmHg PV Peak Velocity 143.0 cm/s FINDINGS Left Ventricle Normal LV size ejection fraction of 66%. Mild to moderate concentric left and the hypertrophy.Grade II/IV diastolic dysfunction, moderately elevated filling pressures. Right Ventricle The right ventricle is normal in size and function. Right Atrium Normal left atrial size Left Atrium Mildly increased left atrial size. Mitral Valve Mild mitral valve regurgitation. Aortic Valve Aortic valve sclerosis. Tricuspid Valve [id number] tricuspid valve regurgitation. Estimated pulmonary artery peak systolic pressure 61 mmHg. The mean pulmonary artery pressure of 37 mmHg Pulmonic Valve No gross abnormalities noted Pericardium No pericardial effusion. Aorta Normal aortic annulus size. IVC Normal inferior vena cava. CONCLUSIONS Normal LV size ejection fraction of 66%. Mild to moderate concentric left and the hypertrophy.Grade II/IV diastolic dysfunction, moderately elevated filling pressures. Mildly increased left atrial size. Mild mitral valve regurgitation. Aortic valve sclerosis. [id number]-ozttxjou tricuspid valve regurgitation. Estimated pulmonary artery peak systolic pressure 61 mmHg. The mean pulmonary artery pressure of 37 mmHg There is no pericardial effusion. There are no intracardiac masses. No similar previous studies are available for comparison Dr Abilio Otero MD [facility] (Electronically Signed) Final Date: 15 July 2023 22:15 S
== END 2023-07-13 12:23 | disposition home or self-care (01) ==
LOC: RAD 12:22
PROVIDERS: PCP Nurse Practitioner Family; Visit Provider Nurse Practitioner Family
DX: I08.3 Combined rheumatic disorders of mitral, aortic and tricuspid valves (principal); R06.09 Other forms of dyspnea
CPT/HCPCS: 93306

== ENCOUNTER → 2023-07-14 12:40 | Outpatient (BNVA) | payer OTHER, SELFPAY | PROVIDERS: PCP Nurse Practitioner Family; Visit Provider Nurse Practitioner Family | DX: L23.9 Allergic contact dermatitis, unspecified cause (principal); D69.2 Other nonthrombocytopenic purpura; L57.8 Other skin changes due to chronic exposure to nonionizing radiation; L81.4 Other melanin hyperpigmentation; L85.3 Xerosis cutis; Z85.828 Personal history of other malignant neoplasm of skin | CPT/HCPCS: 99214 ==

== ENCOUNTER → 2023-07-20 13:07 | Outpatient (BNVA) | payer OTHER, SELFPAY | PROVIDERS: PCP Nurse Practitioner Family; Visit Provider Nurse Practitioner Family | DX: Z09 Encounter for follow-up examination after completed treatment for conditions other than malignant neoplasm (principal); I49.1 Atrial premature depolarization; I49.3 Ventricular premature depolarization; I47.19 Other supraventricular tachycardia | CPT/HCPCS: 93225; 99213 ==

== ENCOUNTER → 2023-09-01 12:37 | Outpatient (BNVA) | payer OTHER, SELFPAY | PROVIDERS: PCP Nurse Practitioner Family; Visit Provider Podiatrist Foot & Ankle Surgery | DX: E11.42 Type 2 diabetes mellitus with diabetic polyneuropathy (principal); I73.9 Peripheral vascular disease, unspecified; L60.3 Nail dystrophy; Z79.84 Long term (current) use of oral hypoglycemic drugs | CPT/HCPCS: 11721 ==

== ENCOUNTER → 2023-09-27 12:32 | Outpatient (BNVA) | payer OTHER, SELFPAY | PROVIDERS: PCP Nurse Practitioner Family; Visit Provider Internal Medicine | DX: I25.10 Atherosclerotic heart disease of native coronary artery without angina pectoris (principal); I10 Essential (primary) hypertension; Z95.1 Presence of aortocoronary bypass graft; E78.5 Hyperlipidemia, unspecified; Z87.891 Personal history of nicotine dependence | CPT/HCPCS: 99214 ==

== ENCOUNTER 2023-10-25 08:30 | Outpatient (CLI) | payer OTHER, SELFPAY ==
--- NOTE | 2023-10-25 | ECG_ITS ---
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
[2023-10-25 08:48] VITALS: BMI 29.0
--- NOTE | 2023-10-25 08:48 | NMCV_ITS ---
NM hemant perf SPECT r/s* [id number] Charbel Azar Age: 88 Gender: M : 1935 Exam Date: 10/25/2023 08:48 Ordering Phys: Frankie Johnson M.D ([email or web address]) Technologist: IRINA Smith Exam Location: [facility] Indications: SOB STRESS TEST [facility] IMAGE PROTOCOL Rest/Stress 1 Lexiscan Day Radiopharmaceutical Dose (mCi) Administration Site Administered by Rest: Tc-99m 10.6 IV IRINA Smith Sestamibi Stress:Tc-99m 32.7 IV IRINA Smith Sestamiagustina Rest: 25-Oct-2023 60 Discovery 630 Stress: 25-Oct-2023 30 Discovery 630 0.4mg Lexiscan. Supine position only as patient was unable to lay prone. SPECT RESULTS Technical Quality: Good Raw Data Analysis: Normal Image Corrections: No attenuation or motion correction applied Summed Stress Score: 0 Summed Rest Score: 1 Summed Difference Score: 0 PERFUSION FINDINGS SPECT images demonstrate homogeneous tracer distribution throughout the myocardium. FUNCTIONAL RESULTS (calculated via Gated SPECT) Stress Image LV EF (%): 49 Stress EDV (mL):130 TID: 1.15 Stress ESV (mL):66 FUNCTIONAL FINDINGS: LV systolic function is mildly reduced with EF of 49% IMPRESSIONS 1. Normal myocardial perfusion imaging with no evidence of ischemia 2. LV systolic function is mildly reduced with EF of 49% Frankie Johnson MD (Electronically Signed) Final Date: 28 October 2023 09:01 S
[2023-10-25] MEDS: regadenoson 0.4 Mg/5 ml Syringe IVP (10:09)
[2023-10-25 10:16] VITALS: BP 152/71; PULSE 80
== END 2023-10-25 08:31 | disposition home or self-care (01) ==
LOC: CDL 08:31
PROVIDERS: PCP Nurse Practitioner Family; Visit Provider Internal Medicine
DX: R06.02 Shortness of breath (principal); I10 Essential (primary) hypertension; R94.39 Abnormal result of other cardiovascular function study
CPT/HCPCS: 36415; 78452; 93017; 96374; A9500; J2785

== ENCOUNTER 2023-10-29 10:08 | Emergency (ER) | payer OTHER, MEDICARE, SELFPAY ==
[2023-10-29 10:16] VITALS: BP 164/77; PULSE 89; RESP 16; TEMP 36.3; O2SAT 92; BMI 29.7
[2023-10-29 10:59] LABS: Hematocrit 35.2 % (37-53); Lymphocytes # 0.5 10^3/uL (0.8-4.8); Lymphocytes % 10.8 %; Mean Corpuscular HGB Conc 32.7 g/dL (30-55); Mean Corpuscular Hemoglobin 25.8 pg (27-33); Mean Corpuscular Volume 79.1 fl (82-101); Mean Platelet Volume 9.1 fL (7.4-10.4); Monocytes # 0.2 10^3/uL (0.2-0.9); Neutrophils % 84.8 %; Nucleated Red Blood Cells % 0 %; Platelet Count 127 10^3/cmm (157-399); Red Blood Count 4.45 10^6/uL (3.85-5.65); Red Cell Distribution Width 16.4 % (12.1-15.1); White Blood Count 4.72 10^3/uL (3.29-11.43)
--- NOTE | 2023-10-29 11:03 | W.ED.RECABL ---
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 He had labs that we told are abnormal. He does not have any symptoms states he feels fine he cannot recall initially what the labs were. After an extended period of time we were able to get labs from the [facility] showed a sodium yesterday was at 124 is chloride 96 and his calcium 82. We did review his labs he recently been started on hydralazine. He is not on any KENNEDY inhibitor's or diuretics. No lightheadedness dizziness headaches or nausea. Review of Systems Const: Denies: fever(s) or chills Card: Denies: chest pain Resp: Denies: dyspnea GI: Denies: abdominal pain : Denies: dysuria, urinary frequency or urinary urgency Musc: Denies: neck pain or back pain Skin/Breast: Denies: rash PFSH ED PFSH: Medical History (Updated 10/29/23 @ 12:14 by Jeff Wright DO) History of nonmelanoma skin cancer BPH (benign prostatic hyperplasia) Nocturia Surgical History S/P angioplasty S/P cholecystectomy S/P skin cancer resection Hx of CABG Family History Mother , 70 No problems noted. Father , 90 No problems noted. Social History Smoking and tobacco/nicotine status: former use of tobacco/nicotine Alcohol intake: never Substance/Drug Use: never Marital status: Current occupational status: retired Physical Exam Const: COMMON NORMALS: no acute distress GENERAL APPEARANCE: cooperative and comfortable ORIENTATION/CONSCIOUSNESS: Yes awake, Yes oriented to person, Yes oriented to place and Yes oriented to time HENMT: COMMON NORMALS: normocephalic, atraumatic and hearing grossly normal bilaterally HEAD & SCALP: normocephalic and atraumatic Resp: COMMON NORMALS: normal respiratory effort, No retractions, No use of accessory muscles and clear to auscultation bilaterally AUSCULTATION: clear to auscultation bilaterally Cardio: COMMON NORMALS: regular rate, regular rhythm and No murmurs present (Cardio) RATE: regular rate RHYTHM: regular rhythm GI: COMMON NORMALS: Soft to palpation and No hepatosplenomegaly present AUSCULTATION: Yes normoactive bowel sounds PALPATION: Yes Soft to palpation, No Tenderness to palpation present (GI), No Guarding due to palpation present (GI) and Yes No hepatosplenomegaly present Extremity: COMMON NORMALS: normal to inspection, capillary refill normal, no clubbing, cyanosis or edema, no calf tenderness and no pedal edema Neuro: SENSORIUM/ORIENTATION: Yes oriented to person, Yes oriented to place and Yes oriented to time Skin: COMMON NORMALS: no rashes or lesions noted GENERAL SKIN EXAM: no rashes or lesions noted Course Vital Signs: Vital signs: Vital Signs Temperature 97.4 F L 10/29/23 10:16 Pulse Rate 63 10/29/23 12:30 Respiratory Rate 16 10/29/23 10:16 Blood Pressure 176/88 10/29/23 12:30 Pulse Oximetry 94 10/29/23 12:30 Oxygen Delivery Me thod Room Air 10/29/23 12:30 MDM - Recheck/Abnormal Lab/Rx Medical Decision Making Sodium was 124 yesterday was 127 today patient is completely asymptomatic given a small normal saline bolus of 500 mL and discharged home he is not on any medications are likely to cause hyponatremia at this point. Follow-up with his primary care doctor next week to recheck. Medical Records I reviewed the patient's medical records. Lab Data I reviewed the patient's lab results. 10/29/23 10:53 10/29/23 10:53 Laboratory Results WBC 4.72 10^3/uL (3.29-11.43) 10/29/23 10:53 RBC 4.45 10^6/uL (3.85-5.65) 10/29/23 10:53 Hgb 11.50 g/dL (11.27-16.99) 10/29/23 10:53 Hct 35.2 % (37-53) L 10/29/23 10:53 MCV 79.1 fl (82-101) L 10/29/23 10:53 MCH 25.8 pg (27-33) L 10/29/23 10:53 MCHC 32.7 g/dL (30-55) 10/29/23 10:53 RDW 16.4 % (12.1-15.1) H 10/29/23 10:53 Plt Count 127 10^3/cmm (157-399) L 10/29/23 10:53 MPV 9.1 fL (7.4-10.4) 10/29/23 10:53 Neut % (Auto) 84.8 % 10/29/23 10:53 Lymph % (Auto) 10.8 % 10/29/23 10:53 [place] % (Auto) 4.0 % 10/29/23 10:53 Eos % (Auto) 0.0 % 10/29/23 10:53 Baso % (Auto) 0.0 % 10/29/23 10:53 Neut # (Auto) 4.00 10^3/uL (1.8-7.7) 10/29/23 10:53 Lymph # (Auto) 0.5 10^3/uL (0.8-4.8) L 10/29/23 10:53 [place] # (Auto) 0.2 10^3/uL (0.2-0.9) 10/29/23 10:53 Eos # (Auto) 0.0 10^3/uL (0.0-0.8) 10/29/23 10:53 Baso # (Auto) 0.0 10^3/uL (0.0-0.1) 10/29/23 10:53 Nucleated RBC % (auto) 0 % 10/29/23 10:53 Nucleated RBCs # 0.0 /100WBC 10/29/23 10:53 Sodium 127 mmol/L (136-145) L 10/29/23 10:53 Potassium 4.5 mmol/L (3.5-5.1) 10/29/23 10:53 Chloride 95 mmol/L (98-107) L 10/29/23 10:53 Carbon Dioxide 23 mmol/L (22-29) 10/29/23 10:53 Anion Gap 13.5 (5-19) 10/29/23 10:53 BUN 14 mg/dL (8-23) 10/29/23 10:53 Creatinine 0.8 mg/dL (0.7-1.2) 10/29/23 10:53 GFR Calculation Not Reportable 10/29/23 10:53 Glucose 200 mg/dL (65-115) H 10/29/23 10:53 Calculated Osmolality 270 mOsm/kg (285-295) L 10/29/23 10:53 Calcium 8.7 mg/dL (8.5-10.5) 10/29/23 10:53 Total Bilirubin 0.5 mg/dL (0.15-1.2) 10/29/23 10:53 AST 34 U/L (0-40) 10/29/23 10:53 ALT 38 U/L (0-41) 10/29/23 10:53 Alkaline Phosphatase 98 U/L (40-130) 10/29/23 10:53 Total Protein 6.6 g/dL (6.6-8.7) 10/29/23 10:53 Albumin 3.8 g/dL (3.5-5.2) 10/29/23 10:53 Globulin 2.8 g/dL (1.3-4.6) 10/29/23 10:53 No radiology studies performed this visit Discharge Plan Discharge Patient Disposition: Home Clinical Impression: Hyponatremia Condition: Stable Prescriptions: No Action Antacid Calcium 215 mg calcium (500 mg) tablet,chewable 430 mg PO BEDTIME PRN (Reason: ANTACID) melatonin 3 mg capsule 6 mg PO BEDTIME dicyclomine 10 mg capsule 10 mg PO TID PRN (Reason: IBS) acetaminophen 325 mg tablet 650 mg PO QID PRN (Reason: Pain) cholecalciferol (vitamin D3) 2,000 unit tablet 4,000 unit PO DAILY clopidogrel 75 mg tablet 75 mg PO DAILY finasteride 5 mg tablet 5 mg PO DAILY fluticasone propionate [Allergy Relief (fluticasone)] 50 mcg/actuation spray,suspension 1 spray INTRANASAL DAILY glipizide 5 mg tablet 5 mg PO BID metformin 1,000 mg tablet extended release 24hr 1,000 mg PO QAM metoprolol succinate 100 mg capsule,sprinkle,ER 24hr See Rx Instructions .ROUTE .COMPLEX Rx Instructions: TAKE 1 TABLET BY MOUTH IN THE MORNING AND 1/2 TABLET IN THE EVENING. pantoprazole [address] for susp in packet 40 mg PO BID simethicone [Gas Relief (simethicone)] 80 mg tablet,chewable 160 mg PO QID PRN (Reason: INDIGESTON) terazosin 10 mg capsule 10 mg PO BEDTIME triamcinolone acetonide 0.1 % ointment 1 applic topical BID Qty: 454 0RF mupirocin 2 % ointment 1 applic topical BID Qty: 22 1RF Rx Instructions: Apply to affected areas on legs until healed hydralazine 50 mg tablet 50 mg PO BID Qty: 90 3RF sennosides [Senokot] 8.6 mg Tablet 8.6 mg PO DAILY cetirizine 10 mg Tablet 10 mg PO DAILY carboxymethylcellulose sodium 0.5 % Drops 2 drp ophthalmic (eye) QID PRN (Reason: Dry Eyes) benzonatate 100 mg Capsule 100 mg PO TID PRN (Reason: Cough) buspirone 10 mg Tablet 10 mg PO TID PRN (Reason: VALERIA) olopatadine 0.1 % Drops 1 drp OPHTHALMIC (EYE) BID Rx Instructions: separate doses by at least 6-8 hours omega [id number]-chi-fish oil [Fish Oil] 1,000 mg (120 mg-180 mg) Capsule 1 cap PO DAILY budesonide-formoterol [Symbicort] 80-4.5 mcg/actuation HFA aerosol inhaler 2 inh inhalation BID Qty: 10.2 0RF albuterol sulfate 90 mcg/actuation HFA aerosol inhaler 2 inh INHALATION Q4H PRN (Reason: shortness of breath or wheezing) Qty: 18 0RF Guaifenesin DM 10-100 mg/5 mL Syrup 10 ml PO Q4H PRN (Reason: Cough) mirtazapine 15 mg Tablet 7.5 mg PO BEDTIME betamethasone dipropionate 0.05 % Ointment 1 applic TOPICAL BID PRN (Reason: Rash) Flonase 50 mcg/actuation [place],Suspension 1 spray INTRANASAL DAILY Rx Instructions: administer into each nostril selenium sulfide 1 % Shampoo 1 applic TOPICAL DAILY Rx Instructions: massage into affected area; leave on for 10 mins ; rinse off thoroughly B Complex 1 (with folic acid) 0.4 mg Tablet 1 tab PO DAILY Eucerin Cream 1 applic TOPICAL BID ferrous gluconate 324 mg (37.5 mg iron) Tablet 324 mg PO DAILY Discharge Orders: Discharge ED (Routine); Ordered 10/29/23 Ordered By: Jeff Wright Referrals: Rosalva Ba FNP [Primary Care Provider] - Discharge Diet: Usual diet Discharge Activity: Increase activity as tolerated Patient Instructions: Opioid Safety, Pain Management Activity Restrictions/Additional Instructions: Thank you for choosing [facility] for your healthcare needs today. It is very important that you follow up as instructed or that you return to the Emergency Department should you have concerns or if your condition changes or worsens in any way. You were seen today was concerned about abnormal labs. Your labs done today show a slightly low chloride normal calcium and these were abnormal in the labs done yesterday. Your sodium is 127 this is in the range that you have been in the past and since you are asymptomatic it does not require any intervention at this time and this should continue to be monitored. We did give you some IV normal saline in the emergency room. Review of your medication list does not show any medicines that are likely to significantly lower sodium. Recheck next week with your primary care doctor Coding Level of Care Code ED Senior Label Specialist for Jordan Aranda
[2023-10-29 11:19] LABS: Alanine Aminotransferase 38 U/L (0-41); Albumin Level 3.8 g/dL (3.5-5.2); Alkaline Phosphatase 98 U/L (40-130); Anion Gap 13.5 (5-19); Aspartate Amino Transferase 34 U/L (0-40); Blood Urea Nitrogen 14 mg/dL (8-23); Calcium 8.7 mg/dL (8.5-10.5); Carbon Dioxide 23 mmol/L (22-29); Chloride 95 mmol/L (98-107); Creatinine Clr Calc Pharmacy 80.1334; Globulin 2.8 g/dL (1.3-4.6); Glucose 200 mg/dL (65-115); Osmolality Calculated 270 mOsm/kg (285-295); Potassium 4.5 mmol/L (3.5-5.1); Sodium 127 mmol/L (136-145); Total Bilirubin 0.5 mg/dL (0.15-1.2); Total Protein 6.6 g/dL (6.6-8.7)
--- NOTE | 2023-10-29 11:20 | PC.PHAR ---
[facility] 10/29/23 11:20AM
[2023-10-29 11:30] VITALS: BP 172/84; PULSE 72; O2SAT 96
[2023-10-29] MEDS: sodium chloride 0.9% 500 ML 999 ML IV (12:06)
[2023-10-29 12:30] VITALS: BP 176/88; PULSE 63; O2SAT 94
[2023-10-29 13:19] VITALS: BP 186/89; PULSE 64; O2SAT 94
== END 2023-10-29 13:21 | disposition home or self-care (01) ==
PROVIDERS: Emergency Provider Family Medicine; PCP Nurse Practitioner Family
DX: E87.1 Hypo-osmolality and hyponatremia (principal); Z79.02 Long term (current) use of antithrombotics/antiplatelets; Z79.84 Long term (current) use of oral hypoglycemic drugs; Z95.1 Presence of aortocoronary bypass graft; Z87.891 Personal history of nicotine dependence
CPT/HCPCS: 36415; 80053; 85025; 96360; 99284; J7040

== ENCOUNTER → 2023-12-01 12:54 | Outpatient (BNVA) | payer OTHER, SELFPAY | PROVIDERS: PCP Nurse Practitioner Family; Visit Provider Podiatrist Foot & Ankle Surgery | DX: E11.42 Type 2 diabetes mellitus with diabetic polyneuropathy (principal); I73.9 Peripheral vascular disease, unspecified; L60.3 Nail dystrophy; R23.4 Changes in skin texture; Z79.84 Long term (current) use of oral hypoglycemic drugs | CPT/HCPCS: 11721; 99213 ==

== ENCOUNTER → 2024-01-18 12:58 | Outpatient (BNVA) | payer OTHER, SELFPAY | PROVIDERS: PCP Nurse Practitioner Family; Visit Provider Nurse Practitioner Family | DX: L57.0 Actinic keratosis (principal); D69.2 Other nonthrombocytopenic purpura; L57.8 Other skin changes due to chronic exposure to nonionizing radiation; L81.4 Other melanin hyperpigmentation; L85.3 Xerosis cutis | CPT/HCPCS: 17000; 99214 ==

== ENCOUNTER → 2024-02-16 10:48 | Outpatient (BNVA) | payer OTHER, SELFPAY | PROVIDERS: PCP Nurse Practitioner Family; Visit Provider Podiatrist Foot & Ankle Surgery | DX: E11.8 Type 2 diabetes mellitus with unspecified complications (principal); E11.42 Type 2 diabetes mellitus with diabetic polyneuropathy; I73.9 Peripheral vascular disease, unspecified; L60.3 Nail dystrophy; R23.4 Changes in skin texture; Z79.84 Long term (current) use of oral hypoglycemic drugs | CPT/HCPCS: 11721 ==

== ENCOUNTER → 2024-03-29 12:37 | Outpatient (BNVA) | payer OTHER, SELFPAY | PROVIDERS: PCP Nurse Practitioner Family; Visit Provider Internal Medicine | DX: I25.10 Atherosclerotic heart disease of native coronary artery without angina pectoris (principal); I10 Essential (primary) hypertension; Z95.1 Presence of aortocoronary bypass graft; E78.5 Hyperlipidemia, unspecified; Z87.891 Personal history of nicotine dependence | CPT/HCPCS: 99214 ==

== ENCOUNTER → 2024-05-02 12:51 | Outpatient (BNVA) | payer OTHER, SELFPAY | PROVIDERS: PCP Nurse Practitioner Family; Visit Provider Podiatrist Foot & Ankle Surgery | DX: E11.8 Type 2 diabetes mellitus with unspecified complications (principal); R23.4 Changes in skin texture; E11.42 Type 2 diabetes mellitus with diabetic polyneuropathy; I73.9 Peripheral vascular disease, unspecified; L60.3 Nail dystrophy; B35.3 Tinea pedis; Z79.84 Long term (current) use of oral hypoglycemic drugs | CPT/HCPCS: 11721; 99213 ==

== ENCOUNTER → 2024-07-10 14:00 | Outpatient (BNVA) | payer OTHER, SELFPAY | PROVIDERS: PCP Nurse Practitioner Family; Visit Provider Nurse Practitioner Family | DX: D69.2 Other nonthrombocytopenic purpura (principal); L57.8 Other skin changes due to chronic exposure to nonionizing radiation; L81.4 Other melanin hyperpigmentation; L85.3 Xerosis cutis; Z08 Encounter for follow-up examination after completed treatment for malignant neoplasm; Z85.828 Personal history of other malignant neoplasm of skin; L57.0 Actinic keratosis | CPT/HCPCS: 17000; 99213 ==

== ENCOUNTER → 2024-08-01 12:25 | Outpatient (BNVA) | payer OTHER, SELFPAY | PROVIDERS: PCP Nurse Practitioner Family; Visit Provider Podiatrist Foot & Ankle Surgery | DX: E11.42 Type 2 diabetes mellitus with diabetic polyneuropathy (principal); L60.3 Nail dystrophy; I73.9 Peripheral vascular disease, unspecified; Z79.84 Long term (current) use of oral hypoglycemic drugs | CPT/HCPCS: 11721 ==

== ENCOUNTER → 2024-11-06 12:31 | Outpatient (BNVA) | payer OTHER, SELFPAY | PROVIDERS: PCP Nurse Practitioner Family; Visit Provider Podiatrist Foot & Ankle Surgery | DX: E11.42 Type 2 diabetes mellitus with diabetic polyneuropathy (principal); L60.3 Nail dystrophy; E11.8 Type 2 diabetes mellitus with unspecified complications; I73.9 Peripheral vascular disease, unspecified; Z79.84 Long term (current) use of oral hypoglycemic drugs | CPT/HCPCS: 11721 ==

== ENCOUNTER → 2024-12-28 12:34 | Outpatient (BNVA) | payer OTHER, SELFPAY | PROVIDERS: PCP Nurse Practitioner Family; Visit Provider Internal Medicine | DX: I25.10 Atherosclerotic heart disease of native coronary artery without angina pectoris (principal); I10 Essential (primary) hypertension; Z95.1 Presence of aortocoronary bypass graft; Z87.891 Personal history of nicotine dependence | CPT/HCPCS: 99214 ==

== ENCOUNTER → 2025-01-10 12:26 | Outpatient (BNVA) | payer OTHER, SELFPAY | PROVIDERS: PCP Nurse Practitioner Family; Visit Provider Nurse Practitioner Family | DX: D69.2 Other nonthrombocytopenic purpura (principal); L57.8 Other skin changes due to chronic exposure to nonionizing radiation; L81.4 Other melanin hyperpigmentation; L85.3 Xerosis cutis; Z08 Encounter for follow-up examination after completed treatment for malignant neoplasm; Z85.828 Personal history of other malignant neoplasm of skin; D48.5 Neoplasm of uncertain behavior of skin; L57.0 Actinic keratosis | CPT/HCPCS: 11102; 17000; 99213 ==

== ENCOUNTER → 2025-01-30 12:30 | Outpatient (BNVA) | payer OTHER, SELFPAY | PROVIDERS: PCP Nurse Practitioner Family; Visit Provider Dermatology | DX: C44.319 Basal cell carcinoma of skin of other parts of face (principal); D04.39 Carcinoma in situ of skin of other parts of face | CPT/HCPCS: 12052; 17280; 17311 ==

== ENCOUNTER → 2025-02-12 12:22 | Outpatient (BNVA) | payer OTHER, SELFPAY | PROVIDERS: PCP Nurse Practitioner Family; Visit Provider Podiatrist Foot & Ankle Surgery | DX: E11.42 Type 2 diabetes mellitus with diabetic polyneuropathy (principal); L60.3 Nail dystrophy; E11.8 Type 2 diabetes mellitus with unspecified complications; I73.9 Peripheral vascular disease, unspecified; Z79.84 Long term (current) use of oral hypoglycemic drugs | CPT/HCPCS: 11721 ==

== ENCOUNTER → 2025-04-03 12:18 | Outpatient (BNVA) | payer OTHER, SELFPAY | PROVIDERS: PCP Nurse Practitioner Family; Referring Provider Nurse Practitioner Family; Visit Provider Internal Medicine | DX: J43.9 Emphysema, unspecified (principal); J96.10 Chronic respiratory failure, unspecified whether with hypoxia or hypercapnia; Z99.81 Dependence on supplemental oxygen; Z86.79 Personal history of other diseases of the circulatory system; Z87.891 Personal history of nicotine dependence; J44.9 Chronic obstructive pulmonary disease, unspecified | CPT/HCPCS: 99204; Q3014 ==

== ENCOUNTER 2025-04-17 11:59 | Outpatient (CLI) | payer OTHER, SELFPAY ==
--- NOTE | 2025-04-17 12:30 | CTR_ITS ---
PROCEDURE INFORMATION: Exam: CT Chest Without Contrast, Diagnostic, High Resolution Exam date and time: 04/17/2025 12:21 PM Age: 89 years old Clinical indication: Condition or disease; Lung condition and disease; Other: Interstitial lung disease; Prior surgery; Surgery date: 6+ months; Surgery type: Heart TECHNIQUE: Imaging protocol: Diagnostic computed tomography of the chest without contrast. Exam was performed with high resolution protocol. Radiation optimization: All CT scans at this facility use at least one of these dose optimization techniques: automated exposure control; mA and/or kV adjustment per patient size (includes targeted exams where dose is matched to clinical indication); or iterative reconstruction. COMPARISON: CT angio chest PE protcl [id number] 07/07/2023 5:26 PM RADIATION DOSE METRICS: Total DLP (mGy-cm): 1871.47 FINDINGS: Lungs: There is severe emphysema with areas of scarring, significant retraction and large pneumatocele involving the right lower lobe. Smaller pneumatocele noted within the left lower lobe. There is mild peribronchial cuffing. No focal consolidation, suspicious nodule or mass is identified. There is evidence of old granulomatous disease. There is mild honeycombing consistent with mild fibrosis. Pleural spaces: Unremarkable. No pneumothorax. No pleural effusion. Heart: Unremarkable. No cardiomegaly. No pericardial effusion. Coronary arteries: CABG. Vasculature: Unremarkable. No aortic aneurysm. Lymph nodes: There are normal-sized axillary lymph nodes. There are normal-sized mediastinal lymph nodes. Bones/joints: Stable degenerative changes are present within the spine. Soft tissues: Unremarkable. CT/CT chest w/o HI-Res(Pulm Only) IMPRESSION: There is stable parenchymal lung findings which includes severe emphysema with scarring/retraction, stable pneumatoceles and mild fibrosis. No focal pneumonia, suspicious nodule or mass is identified.
== END 2025-04-17 12:00 | disposition home or self-care (01) ==
LOC: RAD 12:01
PROVIDERS: PCP Nurse Practitioner Family; Visit Provider Internal Medicine
DX: J96.10 Chronic respiratory failure, unspecified whether with hypoxia or hypercapnia (principal); J43.9 Emphysema, unspecified
CPT/HCPCS: 71250